=== PATIENT | male | born 1975 | race Caucasian/White ===

== ENCOUNTER 2018-03-06 16:04 | Emergency (ER) | payer MEDICAID, OTHER ==
[~2018-03-06] VITALS: Ht 177.8 cm; Wt 81.6 kg
--- NOTE | 2018-03-06 16:18 | NUR ---
PT IS IN ROOM #1B. DR OCONNOR EVALUATED THE PT.
[2018-03-06 16:32] LABS: BASOPHILS % (AUTO) 0.3 % (0.0-2.0); EOSINOPHILS % (AUTO) 0.1 % (0.0-7.0); HEMATOCRIT 46.7 % (36.7-47.1); HEMOGLOBIN 16.4 g/dL (12.5-16.3); LYMPHOCYTES % (AUTO) 11.7 % (20.5-51.5); MEAN CORPUSCULAR HEMOGLOBIN 32.3 uug (23.8-33.4); MEAN CORPUSCULAR HGB CONC 35 g/dL (32.5-36.3); MEAN CORPUSCULAR VOLUME 91.9 fL (73.0-96.2); MONOCYTES # (AUTO) 0.3 K/uL (2.0-10.0); MONOCYTES % (AUTO) 3.1 % (0.0-11.0); NEUTROPHILS # (AUTO) 7.3 K/uL (1.8-8.9); NEUTROPHILS % (AUTO) 84.8 % (38.5-71.5); PLATELET COUNT (AUTO) 252 K/uL (152-348); RED BLOOD CELL COUNT(AUTO) 5.08 MIL/uL (4.06-5.63); WHITE BLOOD COUNT (AUTO) 8.6 K/uL (3.6-10.2)
[2018-03-06 16:42] LABS: POTASSIUM 4.3 mmol/L (3.5-5.1)
[2018-03-06] MEDS ORDERED: IOHEXOL 300MG/ML 100 ML INFUS..BTL ONE (17:16)
[2018-03-06] MEDS ORDERED: SWABABLE VALVE TRANSFER SET EA MC ONE (17:16)
[2018-03-06] MEDS ORDERED: IV NORMAL SALINE 250 ML IV ONE (17:16)
[2018-03-06] MEDS ORDERED: NORMAL SALINE FLUSH 10 ML DISP.SYRIN ONE (17:16)
[2018-03-06] MEDS ORDERED: KETOROLAC TROMETHAMINE 30 MG INJ IVP ONE (19:00)
[2018-03-06] MEDS ORDERED: KETOROLAC TROMETHAMINE 30 MG INJ ONE (19:04)
--- NOTE | 2018-03-06 19:08 | NUR ---
PT WAS D/C TO HOME. D/C INSTRUCTIONS GIVEN TOP THE PT.
[2018-03-06 19:10] VITALS: BP 126/78
== END 2018-03-06 19:11 | disposition left against medical advice (07) ==
LOC: ER 16:04
DX: R07.9 Chest pain, unspecified (principal); R55 Syncope and collapse; F17.200 Nicotine dependence, unspecified, uncomplicated
CPT/HCPCS: 36415; 70030-TC; 71045; 85025; 93005; A4663; J1885; J3490; J7050; Q9967